=== PATIENT | male | born 1965 | race African-American/Black ===

== ENCOUNTER 2022-01-14 23:41 | Emergency (ER) | payer OTHER, SELFPAY ==
[~2022-01-14] VITALS: Ht 170.2 cm; Wt 61.3 kg
[2022-01-15 00:39] LABS: EOSINOPHILS % (AUTO) 3.8 % (1.0-6.0); HEMATOCRIT 24.7 % (41-53); HEMOGLOBIN 7.8 g/dL (13.5-17.5); LYMPHOCYTES % (AUTO) 16.6 % (22.0-44.0); MEAN CORPUSCULAR HGB CONC 31.5 G/dL (31.0-37.0); MEAN CORPUSCULAR VOLUME 83 fL (80-100); MONOCYTES # (AUTO) 0.4 K/uL (0.1-1.0); MONOCYTES % (AUTO) 6.7 % (2.0-9.0); NEUTROPHILS # (AUTO) 4.2 K/uL (1.8-7.7); NEUTROPHILS % (AUTO) 71.9 % (40.0-70.0); PLATELET COUNT (AUTO) 282 K/uL (150-450); RED CELL DISTRIBUTION WIDTH 18.4 % (11.5-14.5)
[2022-01-15 00:46] LABS: ANION GAP 6 mmol/L (8-16); CALCIUM, TOTAL 8.6 mg/dL (8.8-10.5); CARBON DIOXIDE 29 mmol/L (22-29); CHLORIDE 105 mmol/L (98-107); CREATININE 0.66 mg/dL (0.60-1.30); GLOMERULAR FILTR. RATE CALC > 60 mL/min (>60); GLUCOSE,RANDOM 102 mg/dL (70-110); POTASSIUM 3.3 mmol/L (3.5-5.1); SODIUM SERUM 140 mmol/L (136-145); UREA NITROGEN, BLOOD 12 mg/dL (7-18)
[2022-01-15 00:50] LABS: ALANINE AMINOTRANSFERASE 12 U/L (12-78); ALBUMIN 2.8 g/dL (3.4-5.0); ALKALINE PHOSPHATASE 78 U/L (46-116); ASPARTATE AMINOTRANSFERASE 8 U/L (15-37); BILIRUBIN,TOTAL 0.3 mg/dL (0.1-1.0); TOTAL PROTEIN, SERUM 7.7 g/dL (6.4-8.2)
[2022-01-15] MEDS ORDERED: POTASSIUM CHLORIDE 20 MEQ ER TABLET PO ONE (01:00)
[2022-01-15 02:34] VITALS: BP 144/86
== END 2022-01-15 03:41 | disposition home or self-care (01) ==
LOC: EMS 23:43
DX: R60.0 Localized edema (principal); D64.9 Anemia, unspecified; R42 Dizziness and giddiness; I51.9 Heart disease, unspecified; F20.9 Schizophrenia, unspecified; Z20.822 Contact with and (suspected) exposure to COVID-19; Z59.00 Homelessness unspecified
CPT/HCPCS: 71045; 80053; 84484; 85025; 93005; 99285; 36415-L1; 36415-TC

== ENCOUNTER 2022-01-27 00:08 | Emergency (ER) | payer OTHER, SELFPAY ==
[~2022-01-27] VITALS: Ht 180.3 cm; Wt 63.6 kg
[2022-01-27 00:31] VITALS: BP 130/72
[2022-01-28] MEDS ORDERED: HYDR-4072 PO (23:09)
[2022-01-28] MEDS ORDERED: HYDR-4723 PO (23:09)
[2022-01-28] MEDS ORDERED: PANT-31 PO (23:19)
[2022-01-28] MEDS ORDERED: GABA-1181 PO (23:19)
[2022-01-28] MEDS ORDERED: ACET-66 PO (23:19)
== END 2022-01-27 03:08 | disposition home or self-care (01) ==
LOC: EMS 00:10
DX: G89.29 Other chronic pain (principal); M79.604 Pain in right leg; M79.605 Pain in left leg; F20.9 Schizophrenia, unspecified; Z59.00 Homelessness unspecified
CPT/HCPCS: 99283; Z7502

== ENCOUNTER 2022-01-28 22:40 | Emergency (ER) | payer OTHER ==
[~2022-01-28] VITALS: Ht 180.3 cm; Wt 63.6 kg
[2022-01-28] MEDS ORDERED: HYDR-4072 PO (23:09)
[2022-01-28] MEDS ORDERED: HYDR-4723 PO (23:09)
[2022-01-28] MEDS ORDERED: GABAPENTIN 300 MG CAPSULE PO ONE (23:15)
[2022-01-28] MEDS ORDERED: TraMADol HCL 50 MG TABLET PO ONE (23:15)
[2022-01-28] MEDS ORDERED: PANT-31 PO (23:19)
[2022-01-28] MEDS ORDERED: GABA-1181 PO (23:19)
[2022-01-28] MEDS ORDERED: ACET-66 PO (23:19)
[2022-01-29 04:37] VITALS: BP 141/83
== END 2022-01-29 06:06 | disposition home or self-care (01) ==
LOC: EMS 22:41 → MERGE 22:41 → EMS 01-29 06:06
DX: G62.9 Polyneuropathy, unspecified (principal); Z79.899 Other long term (current) drug therapy
CPT/HCPCS: 99283